=== PATIENT | female | born 1985 | race Caucasian/White ===

== ENCOUNTER 2017-04-20 16:55 | Inpatient (IN) | payer OTHER ==
[2017-04-20] MEDS ORDERED: Sodium Chloride 0.9% 10 ML Syringe FLUSH PRN (18:46)
[2017-04-20] MEDS ORDERED: Nalbuphine 20 MG/1 ML Amp IVPUSH PRN (18:48)
[2017-04-20] MEDS ORDERED: Lactated Ringers 1,000 ML IV SCH (19:00)
[2017-04-20] MEDS ORDERED: Oxytocin/Lactated Ringers 10 UNIT/1,000 ML BAG IV SCH ×2 (19:00)
[2017-04-20] MEDS ORDERED: fentaNYL 100 MCG/2 ML SDV EPIDUR PRN (20:48)
[2017-04-20] MEDS ORDERED: ePHEDrine 50 MG/ML SDV IVPUSH PRN (20:48)
[2017-04-20] MEDS ORDERED: Ondansetron 4 MG/2 ML SDV IVPUSH PRN (20:48)
[2017-04-20] MEDS ORDERED: diphenhydrAMINE 50 MG/ML SDV IVPUSH PRN (20:48)
--- NOTE | 2017-04-20 20:54 | PCM.PREANE ---
Preanesthetic Assessment - Procedure Proposed Procedure: Labor Epidural - Anesthesia/Transfusion/Family Hx Anesthesia History: Prior Anesthesia Without Reaction Family History of Anesthesia Reaction: No Transfusion History: No Prior Transfusion(s) Intubation History: Unknown - Review of Systems General: No Symptoms Pulmonary: No Symptoms Cardiovascular: No Symptoms Gastrointestinal: Other (GERD) Neurological: No Symptoms Other: Reports: None - Physical Assessment NPO Status Date: 04/20/17 NPO Status Time: 19:00 Respiratory Rate: 16 Vital Signs: Last Vital Signs Temp 36.7 C 04/20/17 17:30 Pulse 96 04/20/17 17:30 Resp 16 04/20/17 17:30 BP 125/77 04/20/17 17:30 Pulse Ox Height: 1.63 m Weight: 90.378 kg ASA Class: 2 Mental Status: Alert & Oriented x3 Dentition: Reports: Normal Dentition Thyro-Mental Finger Breadths: 3 Mouth Opening Finger Breadths: 3 ROM/Head Extension: Full Lungs: Clear to Auscultation, Normal Respiratory Effort Cardiovascular: Regular Rate, Regular Rhythm - Lab Values: Laboratory Last Values WBC 10.26 K/mm3 (3.98-10.04) H 04/20/17 19:20 RBC 4.37 M/mm3 (3.98-5.22) 04/20/17 19:20 Hgb 12.4 gm/L (11.2-15.7) 04/20/17 19:20 Hct 37.5 % (34.1-44.9) 04/20/17 19:20 MCV 85.8 fl (79.4-94.8) 04/20/17 19:20 MCH 28.4 pg (25.6-32.2) 04/20/17 19:20 MCHC 33.1 g/dl (32.2-35.5) 04/20/17 19:20 RDW Std Deviation 43.4 fL (36.4-46.3) 04/20/17 19:20 Plt Count 206 K/mm3 (182-369) 04/20/17 19:20 MPV 10.7 fl (9.4-12.3) 04/20/17 19:20 Neut % (Auto) 75.2 % (34.0-71.1) H 04/20/17 19:20 Lymph % (Auto) 15.1 % (19.3-51.7) L 04/20/17 19:20 Kimble % (Auto) 8.0 % (4.7-12.5) 04/20/17 19:20 Eos % (Auto) 0.9 (0.7-5.8) 04/20/17 19:20 Baso % (Auto) 0.2 % (0.1-1.2) 04/20/17 19:20 Neut # (Auto) 7.72 K/mm3 (1.56-6.13) H 04/20/17 19:20 Lymph # (Auto) 1.55 K/mm3 (1.18-3.74) 04/20/17 19:20 Kimble # (Auto) 0.82 K/mm3 (0.24-0.36) H 04/20/17 19:20 Eos # (Auto) 0.09 K/mm3 (0.04-0.36) 04/20/17 19:20 Baso # (Auto) 0.02 K/mm3 (0.01-0.08) 04/20/17 19:20 - Allergies Allergies/Adverse Reactions: Allergies Allergy/AdvReac Type Severity Reaction Status Date / Time No Known Allergies Allergy Verified 04/20/17 18:20 - Blood Blood Available: No Product(s) Available: None - Anesthesia Plan Pre-Op Medication Ordered: None - Acknowledgements Anesthesia Type Planned: Epidural Pt an Appropriate Candidate for the Planned Anesthesia: Yes Alternatives and Risks of Anesthesia Discussed w Pt/Guardian: Yes Pt/Guardian Understands and Agrees with Anesthesia Plan: Yes 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 - SUBSTANCE USE Smoking Status *Q: Never Smoker Second Hand Smoke Exposure: No Recreational Drug Use History: No - HOME MEDS Home Medications: Home Meds Vits #93/Iron Fum/FA [ Formula Tablet] 1 tab PO DAILY 04/20/17 [History] - CURRENT (IN HOUSE) MEDS Current Meds: Current Medications Lactated Ringer's (Ringers, Lactated) 1,000 mls @ 100 mls/hr IV ASDIRECTED UMANG Last Admin: 04/20/17 20:17 Dose: 100 mls/hr Oxytocin/Lactated Ringer's (Pitocin In Lr 10 Units/1,000 Ml) 10 unit in 1,000 mls @ 500 mls/hr IV .CONTINUOUS UMANG Oxytocin/Lactated Ringer's (Pitocin In Lr 10 Units/1,000 Ml) 10 unit in 1,000 mls @ 12 mls/hr IV TITRATE UMANG; 2 MUNITS/MIN PRN Reason: Protocol Last Admin: 04/20/17 20:17 Dose: 2 munits/min, 12 mls/hr Nalbuphine HCl (Nubain) 10 mg IVPUSH Q2H PRN PRN Reason: Pain Sodium Chloride (Saline Flush) 10 ml FLUSH ASDIRECTED PRN PRN Reason: Keep Vein Open
[2017-04-20] MEDS ORDERED: Bupivacaine/fentaNYL/NS 100 ML Bag EPIDUR SCH (21:00)
[2017-04-21] MEDS ORDERED: Benzocaine/Menthol 20%-0.5% Spray 56 GM Canister TOP PRN (03:16)
[2017-04-21] MEDS ORDERED: Lanolin 100% Cream 7 GM Tube TOP PRN (03:16)
[2017-04-21] MEDS ORDERED: Witch Hazel Medicated Pads 100/Jar TOP PRN (03:16)
[2017-04-21] MEDS: Ibuprofen 600 MG Tab PO PRN ×2 (05:00→20:03)
[2017-04-21] MEDS: Docusate Sodium 100 MG Cap PO PRN (05:00)
[2017-04-21] MEDS ORDERED: Bupivacaine 0.25% 10 ML SDV ONE (22:22)
--- NOTE | 2017-04-22 06:47 | PCM.DCSUM1 ---
Discharge Summary - Discharge Data Discharge Date: 04/22/17 Discharge Disposition: Home, Self-Care 01 Condition: Good - Patient Instructions Diet: Usual Diet as Tolerated Activity: No Strenuous Activities Driving: May Drive Today Showering/Bathing: May Shower Wound/Incision Care: Keep Operative Site/Wound Site Clean and Dry Notify Provider of: Fever, Increased Pain, Swelling and Redness, Drainage, Nausea and/or Vomiting - Discharge Plan Home Medications: Home Meds Vits #93/Iron Fum/FA [ Formula Tablet] 1 tab PO DAILY 04/20/17 [History] Referrals: Nina Li MD [Primary Care Provider] - (may in [place], scheduled) - Discharge Summary/Plan Comment DC Time >30 min.: No - General Info Functional Status: Reports: Pain Controlled - Review of Systems General: Reports: No Symptoms HEENT: Reports: No Symptoms Pulmonary: Reports: No Symptoms Cardiovascular: Reports: No Symptoms Gastrointestinal: Reports: No Symptoms Genitourinary: Reports: No Symptoms Musculoskeletal: Reports: No Symptoms Skin: Reports: No Symptoms Neurological: Reports: No Symptoms Psychiatric: Reports: No Symptoms - Patient Data Vitals - Most Recent: Last Vital Signs Temp 36.7 C 04/22/17 03:52 Pulse 72 04/22/17 03:52 Resp 14 04/22/17 03:52 BP 118/76 04/22/17 03:52 Pulse Ox 99 04/22/17 03:52 Weight - Most Recent: 90.378 kg I&O - Last 24 hours: Intake & Output 04/21/17 04/21/17 04/22/17 14:59 22:59 06:59 Intake Total 120 Balance 120 Med Orders - Current: Current Medications Benzocaine/Menthol (Dermoplast Pain Relief [place]) 0 gm TOP ASDIRECTED PRN PRN Reason: Perineal Comfort Measure Last Admin: 04/21/17 04:59 Dose: 1 can Docusate Sodium (Colace) 100 mg PO BID PRN PRN Reason: Constipation Last Admin: 04/21/17 05:00 Dose: 100 mg Emollient Ointment (Lansinoh Hpa) 0 gm TOP ASDIRECTED PRN PRN Reason: Sore Nipples Last Admin: 04/21/17 05:00 Dose: 1 tube Ibuprofen (Motrin) 600 mg PO Q6H PRN PRN Reason: Mild pain or fever Last Admin: 04/21/17 20:03 Dose: 600 mg Witch Janny (Tucks) 1 pad TOP ASDIRECTED PRN PRN Reason: Hemorrhoid pain Last Admin: 04/21/17 05:00 Dose: 1 container Discontinued Medications Bupivacaine HCl (Sensorcaine-Mpf 0.25%) 10 ml .ROUTE .STK-MED ONE Stop: 04/21/17 22:23 Diphenhydramine HCl (Benadryl) 25 mg IVPUSH Q6H PRN PRN Reason: Pruritis Ephedrine Sulfate (Ephedrine Sulfate) 5 mg IVPUSH ASDIRECTED PRN PRN Reason: Hypotension Fentanyl (Sublimaze) 100 mcg EPIDUR Q3H PRN PRN Reason: Pain Last Admin: 04/21/17 01:07 Dose: 100 mcg Fentanyl/Bupivacaine HCl (Fentanyl/Bupivacaine/Ns 2 Mcg-0.125% 100 Ml) 100 ml EPIDUR ASDIRECTED UMANG Last Admin: 04/21/17 01:07 Dose: 100 ml Lactated Ringer's (Ringers, Lactated) 1,000 mls @ 100 mls/hr IV ASDIRECTED UMANG Last Admin: 04/20/17 20:17 Dose: 100 mls/hr Oxytocin/Lactated Ringer's (Pitocin In Lr 10 Units/1,000 Ml) 10 unit in 1,000 mls @ 500 mls/hr IV .CONTINUOUS UMANG Oxytocin/Lactated Ringer's (Pitocin In Lr 10 Units/1,000 Ml) 10 unit in 1,000 mls @ 12 mls/hr IV TITRATE UMANG; 2 MUNITS/MIN PRN Reason: Protocol Last Titration: 04/20/17 21:16 Dose: 4 munits/min, 24 mls/hr Nalbuphine HCl (Nubain) 10 mg IVPUSH Q2H PRN PRN Reason: Pain Ondansetron HCl (Zofran) 4 mg IVPUSH ONETIME PRN PRN Reason: Nausea/Vomiting Sodium Chloride (Saline Flush) 10 ml FLUSH ASDIRECTED PRN PRN Reason: Keep Vein Open - Exam General: Reports: Alert, Oriented HEENT: Reports: Pupils Equal, Pupils Reactive, EOMI, Mucous Membr. Moist/[place] Neck: Reports: Supple Lungs: Reports: Clear to Auscultation, Normal Respiratory Effort Cardiovascular: Reports: Regular Rate, Regular Rhythm GI/Abdominal Exam: Normal Bowel Sounds, Soft, Non-Tender, No Organomegaly, No Distention, No Abnormal Bruit, No Mass, Pelvis Stable Rectal (Female) Exam: Normal Exam, Normal Rectal Tone Back Exam: Reports: Normal Inspection, Full Range of Motion Extremities: Normal Inspection, Normal Range of Motion, Non-Tender, No Pedal Edema, Normal Capillary Refill Skin: Reports: Warm, Dry, Intact Wound/Incisions: Reports: Healing Well Neurological: Reports: No New Focal Deficit Psy/Mental Status: Reports: Alert, Normal Affect, Normal Mood *Q Meaningful Use (DIS) - VTE *Q VTE Criteria *Q: - Stroke *Q Stroke Criteria *Q: - AMI *Q AMI Criteria *Q:
[2017-04-22] MEDS: Ibuprofen 600 MG Tab PO PRN (08:36)
[2017-04-22] MEDS: Docusate Sodium 100 MG Cap PO PRN (08:39)
[2017-04-22 09:14] VITALS: BP 111/85
--- NOTE | 2017-05-12 13:03 | PCM.LDHP ---
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 X 3 Social & Family History - Family History Family Medical History: Noncontributory - Tobacco Use Smoking Status *Q: Never Smoker Second Hand Smoke Exposure: No - Recreational Drug Use Recreational Drug Use: No H&P Review of Systems - Review of Systems: Review Of Systems: See Below General: Reports: No Symptoms HEENT: Reports: No Symptoms Pulmonary: Reports: No Symptoms Cardiovascular: Reports: No Symptoms Gastrointestinal: Reports: No Symptoms Genitourinary: Reports: No Symptoms Musculoskeletal: Reports: No Symptoms Skin: Reports: No Symptoms Psychiatric: Reports: No Symptoms Neurological: Reports: No Symptoms Hematologic/Lymphatic: Reports: No Symptoms Immunologic: Reports: No Symptoms L&D Exam - Exam Exam: See Below - Vital Signs Vital Signs: Last Vital Signs Temp 36.6 C 04/22/17 08:34 Pulse 78 04/22/17 08:34 Resp 17 04/22/17 08:34 BP 111/85 04/22/17 08:34 Pulse Ox 99 04/22/17 08:34 Weight: 90.378 kg - OB Specific Contraction Intensity: Mild Movement: Active Heart Rate (FHR) Variability: Moderate (6-25 bmp) Presentation: Vertex - Oneil Score Oneil Score Consistency: Medium Oneil Score Effacement: 51-70% Oneil Score Dilation: 3-4 cm Oneil Score Infant's Station: -1 ,0 - Exam General: Alert, Oriented HEENT: PERRLA, Conjunctiva Clear, EACs Clear, EOMI, Hearing Intact, Mucosa Moist & [place], Nares Patent, Normal Nasal Septum, Posterior Pharynx Clear, TMs Clear Neck: Supple, Trachea Midline Lungs: Clear to Auscultation, Normal Respiratory Effort Cardiovascular: Regular Rate, Regular Rhythm GI/Abdominal Exam: Normal Bowel Sounds, Soft, Non-Tender, No Organomegaly, No Distention, No Abnormal Bruit, No Mass, Pelvis Stable Genitourinary: Normal external exam, Normal bimanual exam, Normal speculum exam Back Exam: Normal Inspection, Full Range of Motion Extremities: Normal Inspection, Normal Range of Motion, Non-Tender, No Pedal Edema, Normal Capillary Refill Skin: Warm, Dry, Intact Neurological: Cranial Nerves Intact, Reflexes Equal Bilateral Psychiatric: Alert, Normal Affect, Normal Mood - Patient Data Result Diagrams: 04/20/17 19:20 Problem List Initiated/Reviewed/Updated: Yes Assessment/Plan Comment:: Term very early labor. Augment with AROM and pitocin. Anticipate .
== END 2017-04-22 10:20 | disposition home or self-care (01) | DRG 775 ==
LOC: JD.OBCHECK 16:55 → JD.OB 16:57 → JD.OBCHECK 18:46 → JD.OB 18:51 → OBSVTOIN 04-21 02:33 → JD.MS 04-21 02:33 → JD.OB 04-21 14:04
PROVIDERS: ADMIT Obstetrics & Gynecology; ATTEND Obstetrics & Gynecology
PROC: 10E0XZZ Delivery of Products of Conception, External Approach (ICD-10-PCS; principal; 2017-04-21)
PROC: 0HQ9XZZ Repair Perineum Skin, External Approach (ICD-10-PCS; 2017-04-21)
PROC: 10907ZC Drainage of Amniotic Fluid, Therapeutic from Products of Conception, Via Natural or Artificial Opening (ICD-10-PCS; 2017-04-21)
PROC: 00HU33Z Insertion of Infusion Device into Spinal Canal, Percutaneous Approach (ICD-10-PCS; 2017-04-21)
PROC: 3E0R3CZ (ICD-10-PCS; 2017-04-21)
DX: O70.0 First degree perineal laceration during delivery (principal); Z3A.40 40 weeks gestation of pregnancy; Z37.0 Single live birth
CPT/HCPCS: 01967; 36415; 85025; A9270-GY; J2590; J3010; J7120

== ENCOUNTER 2020-06-05 11:34 | Inpatient (IN) | payer OTHER ==
[~2020-06-05 11:34] MED LIST: Bupivacaine 0.25% 10 ML SDV ONE
[2020-06-05] MEDS ORDERED: Ondansetron 4 MG/2 ML SDV IVPUSH PRN (11:37)
[2020-06-05] MEDS ORDERED: Nalbuphine 10 MG/ML Syringe IVPUSH PRN (11:37)
[2020-06-05] MEDS ORDERED: Sodium Chloride 0.9% 10 ML Syringe FLUSH PRN (11:37)
--- NOTE | 2020-06-05 11:41 | PCM.LDHP ---
L&D History of Present Illness - General Date of Service: 06/05/20 Admit Problem/Dx: Patient Status Order with Admit Dx/Problem 06/05/20 11:38 Patient Status [ADT] Routine Admission Diagnosis/Problem Admission Diagnosis/Problem Spontaneous rupture of membranes Source of Information: Patient History Limitations: Reports: No Limitations - History of Present Illness Introduction:: Patient is a 34 y/o at 40 0/7 wks who presents for SROM. Was seen in clinic earlier today and noted a gush of fluid in early AM. SSE showed pooling and positive nitrazine. 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 - Past Surgical History GI Surgical History: Reports: Cholecystectomy Social & Family History - Family History Family Medical History: Noncontributory - Tobacco Use Smoking Status *Q: Never Smoker - Alcohol Use Alcohol Use History: No - Recreational Drug Use Recreational Drug Use: No H&P Review of Systems - Review of Systems: Review Of Systems: See Below General: Reports: No Symptoms Pulmonary: Reports: No Symptoms Cardiovascular: Reports: No Symptoms Gastrointestinal: Reports: No Symptoms Genitourinary: Reports: No Symptoms Musculoskeletal: Reports: No Symptoms (d) Psychiatric: Reports: No Symptoms L&D Exam - Exam Exam: See Below - OB Specific Contraction Intensity: Mild Movement: Active Heart Tones: Present Heart Tones per Min: 120 Heart Rate (FHR) Variability: Moderate (6-25 bmp) Presentation: Vertex - Oneil Score Oneil Score Cervix Position: Midposition Oneil Score Consistency: Soft Oneil Score Effacement: >80% Oneil Score Dilation: 3-4 cm Oneil Score 's Station: -2 Oneil Score Total: 9 - Exam General: Alert, Oriented, Cooperative Lungs: Clear to Auscultation, Normal Respiratory Effort Cardiovascular: Regular Rate, Regular Rhythm GI/Abdominal Exam: Soft, Non-Tender Genitourinary: Normal external exam Extremities: Normal Inspection Skin: Warm, Dry, Intact - Patient Data Result Diagrams: 06/05/20 11:55 - Problem List (1) 40 weeks gestation of SNOMED Code(s): 64365740 ICD Code: Z3A.40 - 40 WEEKS GESTATION OF Status: Acute Current Visit: Yes (2) PROM (premature rupture of membranes) SNOMED Code(s): 49429591 ICD Code: O42.90 - SONIA ROM, 7TH0 BETW RUPT & ONST LABR, UNSP WEEKS OF GEST Status: Acute Current Visit: Yes Qualifiers: PROM onset of labor timing: unspecified duration between rupture of membranes and onset of labor PROM gestational age: full term Qualified Code(s): O42.92 - Full-term premature rupture of membranes, unspecified as to length of time between rupture and onset of labor Problem List Initiated/Reviewed/Updated: Yes Orders Last 24hrs: Active Orders 24 hr Category Date Time Status Patient Status [ADT] Routine ADT 06/05/20 11:38 Ordered Activity as Tolerated [RC] PFP Care 06/05/20 11:38 Ordered Communication Order [RC] ASDIRECTED Care 06/05/20 11:38 Ordered Heart Tones [RC] ASDIRECTED Care 06/05/20 11:39 Ordered Non Stress Test [RC] PER UNIT ROUTINE Care 06/05/20 11:38 Ordered Notify Provider [RC] PFP Care 06/05/20 11:38 Ordered Notify Provider [RC] PRN Care 06/05/20 11:38 Ordered Peripheral IV Care [RC] . DIRECTED Care 06/05/20 11:39 Ordered Vital Signs [RC] PER UNIT ROUTINE Care 06/05/20 11:38 Ordered Regular Diet [DIET] Diet 06/05/20 Lunch Ordered CBC W/O DIFF,HEMOGRAM [HEME] Routine Lab 06/05/20 11:37 Ordered CORONAVIRUS COVID-19 ARMIDA [MOLEC] Stat Lab 06/05/20 11:40 Ordered RAPID PLASMA REAGIN,RPR [CHEM] Routine Lab 06/05/20 11:38 Ordered TYPE AND SCREEN [BBK] Routine Lab 06/05/20 11:37 Ordered Lactated Ringers [Ringers, Lactated] 1,000 ml Med 06/05/20 11:45 Ordered IV ASDIRECTED Nalbuphine [Nubain] Med 06/05/20 11:37 Ordered 10 mg IVPUSH Q2H PRN Ondansetron [Zofran] Med 06/05/20 11:37 Ordered 4 mg IVPUSH Q4H PRN Oxytocin/Lactated Ringers [Pitocin in LR 10 Units/1,000 Med 06/05/20 11:45 Ordered ML] 10 unit in 1,000 ml IV .CONTINUOUS Sodium Chloride 0.9% [Saline Flush] Med 06/05/20 11:37 Ordered 10 ml FLUSH ASDIRECTED PRN Electronic Heart Tones Ext w TOCO [WOMSER] Oth 06/05/20 11:38 Ordered Routine Electronic Heart Tones Internal [WOMSER] Per Unit Ot 06/05/20 11:38 Ordered Routine Peripheral IV Insertion Adult [OM.PC] Routine Ot 06/05/20 11:38 Ordered Resuscitation Status Routine Resus Stat 06/05/20 11:37 Ordered Medication Orders Oxytocin/Lactated Ringer's (Pitocin In Lr 10 Units/1,000 Ml) 10 unit in 1,000 mls @ 500 mls/hr IV .CONTINUOUS UMANG Lactated Ringer's (Ringers, Lactated) 1,000 mls @ 100 mls/hr IV ASDIRECTED UMANG Nalbuphine HCl (Nubain) 10 mg IVPUSH Q2H PRN PRN Reason: Pain Ondansetron HCl (Zofran) 4 mg IVPUSH Q4H PRN PRN Reason: Nausea/Vomiting Sodium Chloride (Saline Flush) 10 ml FLUSH ASDIRECTED PRN PRN Reason: Keep Vein Open Assessment/Plan Comment:: * Labs done * GBS negative * Pitocin for augmentation * Pain management per patien tpreference * Anticipate
[2020-06-05] MEDS ORDERED: Oxytocin/Lactated Ringers 10 UNIT/1,000 ML BAG IV SCH ×2 (11:45→13:30)
--- NOTE | 2020-06-05 12:24 | PCM.PREANE ---
Preanesthetic Assessment - Procedure Proposed Procedure: sheri - Anesthesia/Transfusion/Family Hx Anesthesia History: Prior Anesthesia Without Reaction Family History of Anesthesia Reaction: No Transfusion History: No Prior Transfusion(s) Intubation History: Unknown - Review of Systems General: No Symptoms Pulmonary: No Symptoms Cardiovascular: No Symptoms Gastrointestinal: No Symptoms Neurological: No Symptoms Other: Reports: None - Physical Assessment Vital Signs: 127/72 93 20 Height: 5 ft 5 in Weight: 98.883 kg ASA Class: 2 Mental Status: Alert & Oriented x3 Airway Class: Mallampati = 1 Dentition: Reports: Normal Dentition Thyro-Mental Finger Breadths: 3 Mouth Opening Finger Breadths: 3 ROM/Head Extension: Full Lungs: Clear to Auscultation, Normal Respiratory Effort Cardiovascular: Regular Rate, Regular Rhythm - Lab Values: Laboratory Last Values WBC 11.18 K/mm3 (3.98-10.04) H 06/05/20 11:55 RBC 4.62 M/mm3 (3.98-5.22) 06/05/20 11:55 Hgb 13.4 gm/dl (11.2-15.7) 06/05/20 11:55 Hct 40.5 % (34.1-44.9) 06/05/20 11:55 MCV 87.7 fl (79.4-94.8) 06/05/20 11:55 MCH 29.0 pg (25.6-32.2) 06/05/20 11:55 MCHC 33.1 g/dl (32.2-35.5) 06/05/20 11:55 RDW Std Deviation 45.5 fL (36.4-46.3) 06/05/20 11:55 Plt Count 206 K/mm3 (182-369) 06/05/20 11:55 MPV 10.1 fl (9.4-12.3) 06/05/20 11:55 - Allergies Allergies/Adverse Reactions: Allergies Allergy/AdvReac Type Severity Reaction Status Date / Time No Known Allergies Allergy Verified 04/20/17 18:20 - Blood Blood Available: No - Acknowledgements Anesthesia Type Planned: Epidural Pt an Appropriate Candidate for the Planned Anesthesia: Yes Alternatives and Risks of Anesthesia Discussed w Pt/Guardian: Yes Pt/Guardian Understands and Agrees with Anesthesia Plan: Yes PreAnesthesia Questionnaire Cardiovascular History: Reports: None Respiratory History: Reports: None Gastrointestinal History: Reports: GERD (with preg) 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 OB/BYN History: VAGINAL DELIVERY X 3 Oncologic (Cancer) History: Reports: None - SUBSTANCE USE Smoking Status *Q: Never Smoker Tobacco Use Within Last Twelve Months: No Second Hand Smoke Exposure: No Days Per Week of Alcohol Use: 0 Recreational Drug Use History: No - HOME MEDS Home Medications: Home Meds Vits #93/Iron Fum/FA [ Formula Tablet] 1 tab PO DAILY 04/20/17 [History] - CURRENT (IN HOUSE) MEDS Current Meds: Current Medications Oxytocin/Lactated Ringer's (Pitocin In Lr 10 Units/1,000 Ml) 10 unit in 1,000 mls @ 500 mls/hr IV .CONTINUOUS UMANG Lactated Ringer's (Ringers, Lactated) 1,000 mls @ 100 mls/hr IV ASDIRECTED UMANG Nalbuphine HCl (Nubain) 10 mg IVPUSH Q2H PRN PRN Reason: Pain Ondansetron HCl (Zofran) 4 mg IVPUSH Q4H PRN PRN Reason: Nausea/Vomiting Sodium Chloride (Saline Flush) 10 ml FLUSH ASDIRECTED PRN PRN Reason: Keep Vein Open
[2020-06-05] MEDS: Lactated Ringers 1,000 ML IV SCH ×2 (13:25→14:45)
[2020-06-05] MEDS ORDERED: Bupivacaine/fentaNYL/NS 100 ML Bag EPIDUR PRN (14:10)
[2020-06-05] MEDS ORDERED: diphenhydrAMINE 50 MG/ML SDV IVPUSH PRN (14:10)
[2020-06-05] MEDS ORDERED: ePHEDrine 50 MG/ML SDV IVPUSH PRN (14:10)
[2020-06-05] MEDS ORDERED: fentaNYL 100 MCG/2 ML SDV EPIDUR PRN (14:10)
[2020-06-05] MEDS ORDERED: Misoprostol 200 MCG Tab PO STA (17:12)
[2020-06-05] MEDS ORDERED: Docusate Sodium 100 MG Cap PO PRN (17:55)
[2020-06-05] MEDS ORDERED: Benzocaine/Menthol 20%-0.5% Spray 56 GM Canister TOP PRN (17:55)
[2020-06-05] MEDS ORDERED: Ibuprofen 600 MG Tab PO PRN (17:55)
[2020-06-05] MEDS ORDERED: Acetaminophen 325 MG Tab PO PRN (17:55)
[2020-06-05] MEDS ORDERED: Witch Hazel Medicated Pads 40/Jar TOP PRN (17:55)
[2020-06-05] MEDS ORDERED: Oxytocin/Lactated Ringers 10 UNIT/1,000 ML BAG IV ONE (18:07)
--- NOTE | 2020-06-05 19:12 | PCM.DEL ---
L & D Note - General Info Date of Service: 06/05/20 - Delivery Note Labor: Augmented by Oxytocin Delivery Outcome: Livebirth Delivery Method: Spontaneous Vaginal Delivery-Single Delivery Mode: Spontaneous Presentation: Right Occiput Anterior (HENRY) (compound presentation with anterior hand) Nuchal Cord: None Anesthesia Type: Epidural Amniotic Fluid Description: Clear Episiotomy Type: None Laceration: None Placenta: Intact, Spontaneous Cord: 3 Vessels Estimated Blood Loss: 400 Resuscitation Needed: Yes : Bulb Syringe, Stimulated, Warmed, Crum Lynne Used, Warmer Used Delivery Comments (Free Text/Narrative):: Patient found to be complete and began pushing. With maternal pushing effort head delivered from an HENRY presentation. No nuchal cord. With gentle downward traction shoulders and body delivered. Infant placed on maternal abdomen. Cord clamped and cut. Cord blood obtained. Placenta allowed time to separate and expelled intact. After this patient with moderate clots. Given 600 mcg of buccal cytotec with good response. Inspection of perineum showed no lacerations - General Info Date of Service: 06/05/20 - Patient Data Vitals - Most Recent: Last Vital Signs Temp 36.5 C 06/05/20 11:38 Pulse 88 06/05/20 11:38 Resp 16 06/05/20 11:38 BP 131/76 06/05/20 11:38 Pulse Ox 100 06/05/20 11:38 Weight - Most Recent: 98.883 kg I&O - Last 24 Hours: Intake & Output 06/05/20 06/05/20 06/05/20 06:59 14:59 22:59 Intake Total 320 Balance 320 - Problem List & Annotations (1) 40 weeks gestation of SNOMED Code(s): 34989680 Code(s): Z3A.40 - 40 WEEKS GESTATION OF Status: Acute Current Visit: Yes (2) PROM (premature rupture of membranes) SNOMED Code(s): 93366555 Code(s): O42.90 - SONIA ROM, 7TH0 BETW RUPT & ONST LABR, UNSP WEEKS OF GEST Status: Acute Current Visit: Yes Qualifiers: PROM onset of labor timing: unspecified duration between rupture of membranes and onset of labor PROM gestational age: full term Qualified Code(s): O42.92 - Full-term premature rupture of membranes, unspecified as to length of time between rupture and onset of labor (3) Vaginal delivery SNOMED Code(s): 384322198 Code(s): O80 - ENCOUNTER FOR FULL-TERM UNCOMPLICATED DELIVERY Status: Acute Current Visit: Yes - Problem List Review Problem List Initiated/Reviewed/Updated: Yes - My Orders Last 24 Hours: My Active Orders 06/05/20 11:37 Resuscitation Status Routine 06/05/20 11:55 RAPID PLASMA REAGIN,RPR [CHEM] Routine 06/05/20 13:11 PATIENT RETYPE [BBK] Routine 06/05/20 Dinner Regular Diet [DIET] 06/05/20 17:55 Acetaminophen [TylenoL] 650 mg PO Q4H PRN Benzocaine/Menthol [Dermoplast Pain Relief [place]] See Dose Instructions TOP ASDIRECTED PRN Docusate Sodium [Colace] 100 mg PO BID PRN Ibuprofen [Motrin] 600 mg PO Q4H PRN witch [place] [Tucks] 1 pad TOP ASDIRECTED PRN Heat Therapy [OM.PC] PRN 06/05/20 17:55 Activity as Tolerated [RC] PER UNIT ROUTINE Vital Signs [RC] ASDIRECTED Assess Lochia [WOMSER] Per Unit Routine Assess Uterine Involution [WOMSER] Per Unit Routine Breast Pump [WOMSER] Per Unit Routine Ice Therapy [OM.PC] Per Unit Routine Perineal Care [OM.PC] Per Unit Routine Peripheral IV Discontinue [OM.PC] Routine Sitz Bath [OM.PC] Per Unit Routine 06/06/20 17:55 Heat Therapy [OM.PC] PRN - Assessment Assessment:: PPD#0 - Plan Plan:: * Routine cares * Breast feeding * Discharge home in 1-2 days
--- NOTE | 2020-06-06 07:18 | PCM48HPAN ---
Post Anesthesia Note - EVALUATION WITHIN 48HRS OF ANESTHETIC Vital Signs in Normal Range: Yes Patient Participated in Evaluation: Yes Respiratory Function Stable: Yes Airway Patent: Yes Cardiovascular Function Stable: Yes Hydration Status Stable: Yes Pain Control Satisfactory: Yes Nausea and Vomiting Control Satisfactory: Yes Mental Status Recovered: Yes Vital Signs: Last Vital Signs Temp 36.9 C 06/06/20 04:38 Pulse 75 06/06/20 04:38 Resp 16 06/06/20 04:38 BP 109/81 06/06/20 04:38 Pulse Ox 98 06/06/20 04:38
--- NOTE | 2020-06-06 07:19 | PCM.PNPP ---
- General Info Date of Service: 06/06/20 Functional Status: Reports: Pain Controlled, Tolerating Diet, Ambulating, Urinating - Review of Systems General: Reports: No Symptoms Pulmonary: Reports: No Symptoms Cardiovascular: Reports: No Symptoms Gastrointestinal: Reports: No Symptoms Genitourinary: Reports: No Symptoms Musculoskeletal: Reports: No Symptoms - Patient Data Vital Signs - Most Recent: Last Vital Signs Temp 36.9 C 06/06/20 04:38 Pulse 75 06/06/20 04:38 Resp 16 06/06/20 04:38 BP 109/81 06/06/20 04:38 Pulse Ox 98 06/06/20 04:38 Weight - Most Recent: 98.883 kg I&O - Last 24 Hours: Intake & Output 06/05/20 06/06/20 06/06/20 22:59 06:59 14:59 Intake Total 2320 Balance 2320 Lab Results - Last 24 Hours: Laboratory Results - last 24 hr 06/05/20 06/05/20 06/05/20 Range/Units 11:55 11:55 11:55 WBC 11.18 H (3.98-10.04) K/mm3 RBC 4.62 (3.98-5.22) M/mm3 Hgb 13.4 (11.2-15.7) gm/dl Hct 40.5 (34.1-44.9) % MCV 87.7 (79.4-94.8) fl MCH 29.0 (25.6-32.2) pg MCHC 33.1 (32.2-35.5) g/dl RDW Std Deviation 45.5 (36.4-46.3) fL Plt Count 206 (182-369) K/mm3 MPV 10.1 (9.4-12.3) fl RPR Non-reactive (NONREACTIVE) SARS CoV-2 RNA Rapid ARMIDA (NEGATIVE) Blood Type A POSITIVE Gel Antibody Screen Negative 06/05/20 Range/Units 11:55 WBC (3.98-10.04) K/mm3 RBC (3.98-5.22) M/mm3 Hgb (11.2-15.7) gm/dl Hct (34.1-44.9) % MCV (79.4-94.8) fl MCH (25.6-32.2) pg MCHC (32.2-35.5) g/dl RDW Std Deviation (36.4-46.3) fL Plt Count (182-369) K/mm3 MPV (9.4-12.3) fl RPR (NONREACTIVE) SARS CoV-2 RNA Rapid ARMIDA Negative (NEGATIVE) Blood Type Gel Antibody Screen Med Orders - Current: Current Medications Acetaminophen (Tylenol) 650 mg PO Q4H PRN PRN Reason: mild pain or fever Benzocaine/Menthol (Dermoplast Pain Relief Merrill) 0 gm TOP ASDIRECTED PRN PRN Reason: Perineal Comfort Measure Last Admin: 06/05/20 18:17 Dose: 1 spr Documented by: Docusate Sodium (Colace) 100 mg PO BID PRN PRN Reason: Constipation Ibuprofen (Motrin) 600 mg PO Q4H PRN PRN Reason: Mild pain or fever Last Admin: 06/05/20 21:36 Dose: 600 mg Documented by: Bam Laboy) 1 pad TOP ASDIRECTED PRN PRN Reason: Perineal Comfort Measure Last Admin: 06/05/20 18:17 Dose: 1 pad Documented by: Discontinued Medications Diphenhydramine HCl (Benadryl) 25 mg IVPUSH Q6H PRN PRN Reason: pruritis Ephedrine Sulfate (Ephedrine Sulfate) 5 mg IVPUSH ASDIRECTED PRN PRN Reason: Hypotension Fentanyl (Sublimaze) 100 mcg EPIDUR Q3H PRN PRN Reason: Pain Last Admin: 06/05/20 14:21 Dose: 100 mcg Documented by: Fentanyl/Bupivacaine HCl (Fentanyl/Bupivacaine/Ns 2 Mcg-0.125% 100 Ml) 100 ml EPIDUR ASDIRECTED PRN PRN Reason: Pain Oxytocin/Lactated Ringer's (Pitocin In Lr 10 Units/1,000 Ml) 10 unit in 1,000 mls @ 500 mls/hr IV .CONTINUOUS UMANG Lactated Ringer's (Ringers, Lactated) 1,000 mls @ 100 mls/hr IV ASDIRECTED UMANG Last Admin: 06/05/20 14:45 Dose: 500 mls/hr Documented by: Oxytocin/Lactated Ringer's (Pitocin In Lr 10 Units/1,000 Ml) 10 unit in 1,000 mls @ 12 mls/hr IV TITRATE UMANG; Protocol Last Titration: 06/05/20 18:15 Dose: Infused Documented by: Oxytocin/Lactated Ringer's (Pitocin In Lr 10 Units/1,000 Ml) Confirm Administered Dose 10 unit in 1,000 mls @ as directed IV .STK-MED ONE Stop: 06/05/20 18:08 Last Admin: 06/05/20 18:16 Dose: 300 mls/hr Documented by: Misoprostol (Cytotec) 600 mcg PO NOW STA Stop: 06/05/20 17:13 Last Admin: 06/05/20 17:15 Dose: 600 mcg Documented by: Nalbuphine HCl (Nubain) 10 mg IVPUSH Q2H PRN PRN Reason: Pain Ondansetron HCl (Zofran) 4 mg IVPUSH Q4H PRN PRN Reason: Nausea/Vomiting Sodium Chloride (Saline Flush) 10 ml FLUSH ASDIRECTED PRN PRN Reason: Keep Vein Open - Interaction Infant Disposition, : [place] in Room with Family Infant Interaction: Holding Infant Infant Feeding: Breastfed Infant; Nursed Well Support Person: - Recovery Exam Fundal Tone: Firm Fundal Level: At Umbilicus Lochia Amount: Moderate Lochia Color: Rubra/Red Perineum Description: Intact, Minimal Bruising/Swelling Episiotomy/Laceration: None Bladder Status: Voiding Urinary Elimination: Voided - Exam General: Alert, Oriented, Cooperative GI/Abdominal Exam: Soft, Non-Tender Extremities: Normal Inspection Skin: Warm, Dry, Intact - Problem List & Annotations (1) 40 weeks gestation of SNOMED Code(s): 90344516 Code(s): Z3A.40 - 40 WEEKS GESTATION OF Status: Acute Current Visit: Yes (2) PROM (premature rupture of membranes) SNOMED Code(s): 28842192 Code(s): O42.90 - SONIA ROM, 7TH0 BETW RUPT & ONST LABR, UNSP WEEKS OF GEST Status: Acute Current Visit: Yes Qualifiers: PROM onset of labor timing: unspecified duration between rupture of membranes and onset of labor PROM gestational age: full term Qualified Code(s): O42.92 - Full-term premature rupture of membranes, unspecified as to length of time between rupture and onset of labor (3) Vaginal delivery SNOMED Code(s): 061323584 Code(s): O80 - ENCOUNTER FOR FULL-TERM UNCOMPLICATED DELIVERY Status: Acute Current Visit: Yes - Problem List Review Problem List Initiated/Reviewed/Updated: Yes - My Orders Last 24 Hours: My Active Orders 06/05/20 11:37 Resuscitation Status Routine 06/05/20 Dinner Regular Diet [DIET] 06/05/20 17:55 Acetaminophen [TylenoL] 650 mg PO Q4H PRN Benzocaine/Menthol [Dermoplast Pain Relief [place]] See Dose Instructions TOP ASDIRECTED PRN Docusate Sodium [Colace] 100 mg PO BID PRN Ibuprofen [Motrin] 600 mg PO Q4H PRN witch Edmar [Tucks] 1 pad TOP ASDIRECTED PRN Heat Therapy [OM.PC] PRN 06/05/20 17:55 Activity as Tolerated [RC] PER UNIT ROUTINE Vital Signs [RC] 03,,15,21 Assess Lochia [WOMSER] Per Unit Routine Assess Uterine Involution [WOMSER] Per Unit Routine Breast Pump [WOMSER] Per Unit Routine Ice Therapy [OM.PC] Per Unit Routine Perineal Care [OM.PC] Per Unit Routine Peripheral IV Discontinue [OM.PC] Routine Sitz Bath [OM.PC] Per Unit Routine 06/06/20 07:19 Ready for Discharge [RC] PER UNIT ROUTINE 06/06/20 17:55 Heat Therapy [OM.PC] PRN - Assessment Assessment:: PPD#1 - Plan Plan:: * Routine cares * Breast feeding * Discharge home today
[2020-06-06 15:13] VITALS: BP 120/53; PULSE 92
== END 2020-06-06 17:42 | disposition home or self-care (01) | DRG 807 ==
LOC: JD.OBCHECK 11:34 → JD.OB 11:35 → JD.OBCHECK 11:37 → JD.OB 11:38 → OBSVTOIN 16:55 → JD.OB 17:00
PROVIDERS: ADMIT Obstetrics & Gynecology; ATTEND Obstetrics & Gynecology
PROC: 10E0XZZ Delivery of Products of Conception, External Approach (ICD-10-PCS; principal; 2020-06-05)
PROC: 3E0R3BZ Introduction of Anesthetic Agent into Spinal Canal, Percutaneous Approach (ICD-10-PCS; 2020-06-05)
PROC: 00HU33Z Insertion of Infusion Device into Spinal Canal, Percutaneous Approach (ICD-10-PCS; 2020-06-05)
DX: O42.92 Full-term premature rupture of membranes, unspecified as to length of time between rupture and onset of labor (principal); Z37.0 Single live birth; Z20.828 Contact with and (suspected) exposure to other viral communicable diseases; Z3A.40 40 weeks gestation of pregnancy; Z90.49 Acquired absence of other specified parts of digestive tract
CPT/HCPCS: 01967; 36415; 51702; 59025; 59409; 85027; 86592; 86850; 86900; 86901; A9270-GY; J2590; J3010; J3490; J7120; U0002